=== PATIENT | male | born 1960 | race Caucasian/White ===

== ENCOUNTER 2017-11-08 11:00 | Emergency (ER) | payer MEDICAID ==
[~2017-11-08] VITALS: Ht 170.2 cm; Wt 84.1 kg
[2017-11-08 11:37] LABS: BASOPHILS # (AUTO) 0.02 x10^3/uL (0-0.1); BASOPHILS % (AUTO) 0 % (0-1); EOSINOPHILS # (AUTO) 0.08 x10^3/uL (0-0.4); EOSINOPHILS % (AUTO) 1 % (1-7); LYMPHOCYTES # (AUTO) 1.24 x10^3/uL (1-3.4); LYMPHOCYTES % (AUTO) 18 % (22-44); MD NO; MEAN CORPUSCULAR HEMOGLOBIN 31.6 pg (27.5-34.5); MEAN CORPUSCULAR HGB CONC 33.9 g/dL (33.2-36.2); MEAN CORPUSCULAR VOLUME 93.1 fL (81-97); MEAN PLATELET VOLUME 7.1 fL (7.4-10.4); MONOCYTES # (AUTO) 0.49 x10^3/uL (0.2-0.8); MONOCYTES % (AUTO) 7 % (2-9); NEUTROPHILS # (AUTO) 5.11 x10^3/uL (1.8-6.8); NEUTROPHILS % (AUTO) 74 % (42-75); PLATELET COUNT 225 x10^3/uL (130-400); RED BLOOD COUNT 4.87 x10^6/uL (4.38-5.82); RED CELL DISTRIBUTION WIDTH 13.7 % (9.4-14.8)
[2017-11-08 11:43] LABS: ALANINE AMINOTRANSFERASE 23 U/L (12-78); ALBUMIN 3.8 g/dL (3.4-5.0); ANION GAP 5 mmol/L (5-15); CALCIUM 8.6 mg/dL (8.5-10.1); CHLORIDE 112 mmol/L (98-107); CREATININE 0.84 mg/dL (0.7-1.3)
[2017-11-08 11:48] LABS: ALKALINE PHOSPHATASE 96 U/L (45-117); BILIRUBIN,TOTAL 1.1 mg/dL (0.2-1.0); TOTAL PROTEIN 7.2 g/dL (6.4-8.2); TROPONIN I < 0.015 ng/mL (0.000-0.045)
[2017-11-08] MEDS ORDERED: ONDANSETRON ODT 4 MG ONE (13:20)
[2017-11-08] MEDS ORDERED: MECLIZINE CHEWABLE 25 MG TAB ONE (13:20)
[2017-11-08] MEDS ORDERED: MECLIZINE CHEWABLE 25 MG TAB PO ONE (13:30)
[2017-11-08] MEDS ORDERED: ONDANSETRON ODT 4 MG PO ONE (13:30)
[2017-11-08 14:24] VITALS: BP 136/89
== END 2017-11-08 14:29 | disposition home or self-care (01) ==
LOC: ED 14:05
DX: R42 Dizziness and giddiness (principal); R53.1 Weakness
CPT/HCPCS: 36415; 71045; 80053; 84484; 85025; 93005; 99285; Q0162

== ENCOUNTER 2020-02-09 17:33 | Inpatient (IN) | payer MEDICAID, OTHER ==
[~2020-02-09] VITALS: Ht 170.2 cm; Wt 82.4 kg
--- NOTE | 2020-02-09 17:58 | NUR ---
TASK RN COVERING PRIMARY RN MEALBREAK. ERP IN TO ASSESS PT.
--- NOTE | 2020-02-09 18:04 | NUR ---
PT HAS CO LOW BACK PAIN, DECREASED APPETITE, WEAKNESS, DIARRHEA, AND OCCASIONAL COUGH. DENIES SOB OR CP. PLACED VITAL SIGNS MONITORS. CALL LIGHT WITHIN REACH.
[2020-02-09 18:18] LABS: BASOPHILS # (AUTO) 0.02 x10^3/uL (0-0.1); BASOPHILS % (AUTO) 1 % (0-1); EOSINOPHILS % (AUTO) 0 % (1-7); LYMPHOCYTES # (AUTO) 0.61 x10^3/uL (1-3.4); LYMPHOCYTES % (AUTO) 19 % (22-44); MD NO; MEAN CORPUSCULAR HEMOGLOBIN 31.2 pg (27.5-34.5); MEAN CORPUSCULAR HGB CONC 33.4 g/dL (33.2-36.2); MEAN CORPUSCULAR VOLUME 93.4 fL (81-97); MEAN PLATELET VOLUME 7.8 fL (7.4-10.4); MONOCYTES # (AUTO) 0.37 x10^3/uL (0.2-0.8); MONOCYTES % (AUTO) 12 % (2-9); NEUTROPHILS # (AUTO) 2.26 x10^3/uL (1.8-6.8); NEUTROPHILS % (AUTO) 69 % (42-75); PLATELET COUNT 108 x10^3/uL (130-400); RED CELL DISTRIBUTION WIDTH 14.2 % (9.4-14.8)
[2020-02-09 18:27] LABS: MICROSCOPIC NOT IND
[2020-02-09 18:27] LABS: ALBUMIN 3.3 g/dL (3.4-5.0); ANION GAP 8 mmol/L (5-15); CHLORIDE 105 mmol/L (98-107)
[2020-02-09 18:39] LABS: ALANINE AMINOTRANSFERASE 34 U/L (12-78); ALKALINE PHOSPHATASE 78 U/L (45-117); BILIRUBIN,TOTAL 0.6 mg/dL (0.2-1.0); CREATININE 0.82 mg/dL (0.7-1.3); TOTAL PROTEIN 6.7 g/dL (6.4-8.2)
[2020-02-09] MEDS ORDERED: ACETAMINOPHEN 500 MG TABLET ONE (18:57)
[2020-02-09] MEDS ORDERED: CEFTRIAXONE PMX 1GM/50ML 50 ML IV ONE (19:00)
[2020-02-09] MEDS ORDERED: ACETAMINOPHEN 500 MG TABLET PO ONE (19:00)
[2020-02-09] MEDS ORDERED: AZITHROMYCIN 500 MG in SODIUM CHLORIDE 0.9% 250 ML IV ONE (19:00)
[2020-02-09] MEDS ORDERED: CEFTRIAXONE PMX 1GM/50ML 50 ML ONE (19:03)
--- NOTE | 2020-02-09 20:05 | NUR ---
ABX INFUSING, VSS. AWAITING BED ASSIGNMENT.
--- NOTE | 2020-02-09 20:41 | NUR ---
REPORT GIVEN TO MARCO A MARTINEZ.
[2020-02-09 21:30] VITALS: BP 110/73
[2020-02-09] MEDS ORDERED: ONDANSETRON ODT 4 MG PO PRN (21:30)
[2020-02-09] MEDS ORDERED: HEPARIN 5,000 UNITS/ML, 1ML SQ SCH (21:30)
[2020-02-09] MEDS ORDERED: MELATONIN 5 MG TABLET PO PRN (21:30)
[2020-02-09] MEDS ORDERED: ACETAMINOPHEN 325 MG TABLET PO PRN (21:30)
[2020-02-09] MEDS ORDERED: hydrALAzine 20 MG/ML, 1ML IVPush PRN (21:30)
[2020-02-09] MEDS ORDERED: DOCUSATE 100 MG CAPSULE PO PRN (21:30)
[2020-02-10 00:13] VITALS: BP 124/79
[2020-02-10 05:49] LABS: BASOPHILS # (AUTO) 0.01 x10^3/uL (0-0.1); BASOPHILS % (AUTO) 0 % (0-1); EOSINOPHILS # (AUTO) 0.01 x10^3/uL (0-0.4); EOSINOPHILS % (AUTO) 0 % (1-7); LYMPHOCYTES % (AUTO) 24 % (22-44); MD NO; MEAN CORPUSCULAR HEMOGLOBIN 31.3 pg (27.5-34.5); MEAN CORPUSCULAR HGB CONC 33.3 g/dL (33.2-36.2); MEAN CORPUSCULAR VOLUME 94.1 fL (81-97); MEAN PLATELET VOLUME 7.9 fL (7.4-10.4); MONOCYTES % (AUTO) 15 % (2-9); NEUTROPHILS # (AUTO) 2.07 x10^3/uL (1.8-6.8); NEUTROPHILS % (AUTO) 61 % (42-75); PLATELET COUNT 105 x10^3/uL (130-400); RED CELL DISTRIBUTION WIDTH 14.1 % (9.4-14.8)
[2020-02-10 05:59] LABS: ANION GAP 7 mmol/L (5-15); CALCIUM 8.4 mg/dL (8.5-10.1); CHLORIDE 108 mmol/L (98-107); CREATININE 0.71 mg/dL (0.7-1.3)
[2020-02-10 07:54] LABS: TROPONIN I < 0.015 ng/mL (0.000-0.045)
[2020-02-10 08:00] VITALS: BP 134/83
[2020-02-10] MEDS ORDERED: ASCORBIC ACID 500 MG TABLET PO SCH (08:00)
[2020-02-10] MEDS: DEXAMETHASONE 4 MG/ML, 1ML IVPush SCH ×2 (08:00→20:02)
[2020-02-10] MEDS: ENOXAPARIN 40 MG/0.4 ML SQ SCH (08:02)
[2020-02-10] MEDS: THIAMINE 100MG TABLET PO SCH ×2 (08:02→20:02)
[2020-02-10] MEDS: CHOLECALCIFEROL 5,000u TAB PO SCH (08:02)
[2020-02-10] MEDS: ZINC SULFATE 220 MG CAPSULE PO SCH (08:02)
[2020-02-10] MEDS ORDERED: LOVA20TA2 PO (11:53)
[2020-02-10] MEDS ORDERED: LEVO50TA PO (11:53)
[2020-02-10 12:30] VITALS: BP 118/82
[2020-02-10] MEDS: ASCORBIC ACID 500 MG TABLET PO SCH (16:08)
[2020-02-10 19:22] VITALS: BP 147/89
[2020-02-10] MEDS ORDERED: CEFTRIAXONE PMX 1GM/50ML 50 ML IV SCH (19:30)
[2020-02-10 20:17] LABS: CLOSTRIDIUM DIFFICILE ANTIGEN NEGATIVE; CLOSTRIDIUM DIFFICILE TOXIN NEGATIVE (Negative)
[2020-02-10] MEDS: AZITHROMYCIN 500 MG in SODIUM CHLORIDE 0.9% 250 ML IV SCH (21:22)
[2020-02-11] MEDS ORDERED: OMNIPAQUE 350 MG/ML, 100ML BOTTLE ONE (00:05)
[2020-02-11 00:12] VITALS: BP 116/77
[2020-02-11 05:00] LABS: BASOPHILS # (AUTO) 0.01 x10^3/uL (0-0.1); BASOPHILS % (AUTO) 0 % (0-1); EOSINOPHILS % (AUTO) 0 % (1-7); LYMPHOCYTES # (AUTO) 0.52 x10^3/uL (1-3.4); LYMPHOCYTES % (AUTO) 15 % (22-44); MD NO; MEAN CORPUSCULAR HEMOGLOBIN 31.7 pg (27.5-34.5); MEAN CORPUSCULAR HGB CONC 33.7 g/dL (33.2-36.2); MEAN CORPUSCULAR VOLUME 94.1 fL (81-97); MEAN PLATELET VOLUME 8.3 fL (7.4-10.4); MONOCYTES # (AUTO) 0.37 x10^3/uL (0.2-0.8); MONOCYTES % (AUTO) 11 % (2-9); NEUTROPHILS # (AUTO) 2.49 x10^3/uL (1.8-6.8); NEUTROPHILS % (AUTO) 73 % (42-75); PLATELET COUNT 125 x10^3/uL (130-400); RED BLOOD COUNT 4.76 x10^6/uL (4.38-5.82); RED CELL DISTRIBUTION WIDTH 14.4 % (9.4-14.8)
[2020-02-11 05:12] LABS: ANION GAP 6 mmol/L (5-15); CALCIUM 8.7 mg/dL (8.5-10.1); CHLORIDE 109 mmol/L (98-107)
[2020-02-11 07:49] VITALS: BP 112/68
[2020-02-11] MEDS: DEXAMETHASONE 4 MG/ML, 1ML IVPush SCH ×2 (09:40→21:07)
[2020-02-11] MEDS: ASCORBIC ACID 500 MG TABLET PO SCH ×3 (09:41→17:13)
[2020-02-11] MEDS: ZINC SULFATE 220 MG CAPSULE PO SCH (09:42)
[2020-02-11] MEDS: ENOXAPARIN 40 MG/0.4 ML SQ SCH (09:42)
[2020-02-11] MEDS: CHOLECALCIFEROL 5,000u TAB PO SCH (09:42)
[2020-02-11] MEDS: THIAMINE 100MG TABLET PO SCH ×2 (09:42→21:08)
[2020-02-11] MEDS: PIPERACILLIN/TAZO/PMX 3.375GM 50 ML IV SCH ×3 (09:57→23:10)
[2020-02-11] MEDS ORDERED: ASCORBIC ACID 250 MG TAB ONE (11:32)
[2020-02-11 13:39] VITALS: BP 114/77
[2020-02-11 18:54] VITALS: BP 123/73
[2020-02-11] MEDS ORDERED: LOPERAMIDE 2 MG CAPSULE PO PRN (19:00)
[2020-02-11] MEDS: AZITHROMYCIN 500 MG in SODIUM CHLORIDE 0.9% 250 ML IV SCH (21:08)
[2020-02-11] MEDS: ENOXAPARIN 80 MG/0.8 ML SQ SCH (21:08)
[2020-02-12 01:28] VITALS: BP 116/73
[2020-02-12] MEDS: PIPERACILLIN/TAZO/PMX 3.375GM 50 ML IV SCH ×4 (05:11→22:49)
[2020-02-12 05:19] LABS: BASOPHILS # (AUTO) 0.01 x10^3/uL (0-0.1); BASOPHILS % (AUTO) 0 % (0-1); EOSINOPHILS # (AUTO) 0.01 x10^3/uL (0-0.4); EOSINOPHILS % (AUTO) 0 % (1-7); LYMPHOCYTES # (AUTO) 0.61 x10^3/uL (1-3.4); LYMPHOCYTES % (AUTO) 7 % (22-44); MD NO; MEAN CORPUSCULAR HEMOGLOBIN 31.2 pg (27.5-34.5); MEAN CORPUSCULAR VOLUME 94.4 fL (81-97); MEAN PLATELET VOLUME 8.6 fL (7.4-10.4); MONOCYTES # (AUTO) 0.63 x10^3/uL (0.2-0.8); MONOCYTES % (AUTO) 7 % (2-9); NEUTROPHILS # (AUTO) 7.49 x10^3/uL (1.8-6.8); NEUTROPHILS % (AUTO) 86 % (42-75); PLATELET COUNT 137 x10^3/uL (130-400); RED CELL DISTRIBUTION WIDTH 14.4 % (9.4-14.8)
[2020-02-12 05:26] LABS: ALBUMIN 2.7 g/dL (3.4-5.0); ANION GAP 8 mmol/L (5-15); CHLORIDE 111 mmol/L (98-107)
[2020-02-12 05:33] LABS: ALANINE AMINOTRANSFERASE 33 U/L (12-78); ALKALINE PHOSPHATASE 79 U/L (45-117); BILIRUBIN,TOTAL 0.8 mg/dL (0.2-1.0); CREATININE 0.86 mg/dL (0.7-1.3); TOTAL PROTEIN 6.2 g/dL (6.4-8.2); TROPONIN I < 0.015 ng/mL (0.000-0.045)
[2020-02-12 06:54] VITALS: BP 107/72
[2020-02-12] MEDS: ZINC SULFATE 220 MG CAPSULE PO SCH (08:51)
[2020-02-12] MEDS: DEXAMETHASONE 4 MG/ML, 1ML IVPush SCH (08:51)
[2020-02-12] MEDS: ENOXAPARIN 80 MG/0.8 ML SQ SCH ×2 (08:51→21:29)
[2020-02-12] MEDS: THIAMINE 100MG TABLET PO SCH ×2 (08:52→21:29)
[2020-02-12] MEDS: ASCORBIC ACID 500 MG TABLET PO SCH ×3 (08:52→17:00)
[2020-02-12] MEDS: CHOLECALCIFEROL 5,000u TAB PO SCH (08:52)
[2020-02-12 12:29] VITALS: BP 21/81
[2020-02-12 19:51] VITALS: BP 124/76
[2020-02-12] MEDS: AZITHROMYCIN 500 MG in SODIUM CHLORIDE 0.9% 250 ML IV SCH (21:30)
[2020-02-13 00:34] VITALS: BP 100/64
[2020-02-13] MEDS: PIPERACILLIN/TAZO/PMX 3.375GM 50 ML IV SCH ×3 (05:04→16:31)
[2020-02-13 06:26] LABS: ALBUMIN 2.6 g/dL (3.4-5.0); ANION GAP 8 mmol/L (5-15); CALCIUM 7.9 mg/dL (8.5-10.1); CHLORIDE 112 mmol/L (98-107)
[2020-02-13 06:34] LABS: ALANINE AMINOTRANSFERASE 31 U/L (12-78); ALKALINE PHOSPHATASE 80 U/L (45-117); BILIRUBIN,TOTAL 0.9 mg/dL (0.2-1.0); CREATININE 0.78 mg/dL (0.7-1.3); TOTAL PROTEIN 6.1 g/dL (6.4-8.2)
[2020-02-13 07:05] LABS: BASOPHILS % (AUTO) 0 % (0-1); EOSINOPHILS % (AUTO) 0 % (1-7); LYMPHOCYTES # (AUTO) 0.71 x10^3/uL (1-3.4); LYMPHOCYTES % (AUTO) 7 % (22-44); MD NO; MEAN CORPUSCULAR HEMOGLOBIN 30.9 pg (27.5-34.5); MEAN CORPUSCULAR HGB CONC 32.3 g/dL (33.2-36.2); MEAN CORPUSCULAR VOLUME 95.4 fL (81-97); MEAN PLATELET VOLUME 8.8 fL (7.4-10.4); MONOCYTES # (AUTO) 0.63 x10^3/uL (0.2-0.8); MONOCYTES % (AUTO) 6 % (2-9); NEUTROPHILS # (AUTO) 8.85 x10^3/uL (1.8-6.8); NEUTROPHILS % (AUTO) 87 % (42-75); PLATELET COUNT 139 x10^3/uL (130-400); RED BLOOD COUNT 4.47 x10^6/uL (4.38-5.82); RED CELL DISTRIBUTION WIDTH 14.1 % (9.4-14.8)
[2020-02-13 07:25] VITALS: BP 112/65
[2020-02-13] MEDS ORDERED: DEXAMETHASONE 4 MG TABLET PO SCH (09:00)
[2020-02-13] MEDS: CHOLECALCIFEROL 5,000u TAB PO SCH (09:40)
[2020-02-13] MEDS: THIAMINE 100MG TABLET PO SCH (09:40)
[2020-02-13] MEDS: ZINC SULFATE 220 MG CAPSULE PO SCH (09:40)
[2020-02-13] MEDS: ENOXAPARIN 80 MG/0.8 ML SQ SCH (09:41)
[2020-02-13] MEDS: ASCORBIC ACID 500 MG TABLET PO SCH ×2 (11:24→16:31)
[2020-02-13 12:49] VITALS: BP 116/74
[2020-02-13] MEDS ORDERED: ASCO500T9 PO (17:49)
[2020-02-13] MEDS ORDERED: MELA5TAB14 PO (17:49)
[2020-02-13] MEDS ORDERED: AMOX1TAB12 PO (17:49)
[2020-02-13] MEDS ORDERED: PRED10TA PO (17:49)
[2020-02-13] MEDS ORDERED: DOXY100T PO (17:49)
[2020-02-13] MEDS ORDERED: THIA100T67 PO (17:49)
[2020-02-13] MEDS ORDERED: CHOL500045 PO (17:49)
[2020-02-13] MEDS ORDERED: ZINC220C7 PO (17:49)
[2020-02-13] MEDS ORDERED: APIX5TAB PO (17:49)
[2020-02-13] MEDS ORDERED: APIXABAN 5 MG TABLET PO SCH (21:00)
[2020-02-13] MEDS ORDERED: DOXYCYCLINE 100MG TABLET PO SCH (21:00)
[2020-02-13] MEDS ORDERED: AMOXICILLIN/CLAV 875-125MG TABLET PO SCH (21:00)
== END 2020-02-13 19:35 | disposition home or self-care (01) | DRG 177 ==
LOC: ED 20:34 → 3N 22:32 → UNDODISIN 02-13 18:17
PROVIDERS: ADMIT Family Medicine; ATTEND Internal Medicine
DX: U07.1 COVID-19 (principal); J12.89 Other viral pneumonia; C85.90 Non-Hodgkin lymphoma, unspecified, unspecified site; D69.6 Thrombocytopenia, unspecified; D72.819 Decreased white blood cell count, unspecified; K80.20 Calculus of gallbladder without cholecystitis without obstruction
CPT/HCPCS: 36415; 71045; 71275; 80048; 80053; 81003; 82728; 83605; 83615; 84145; 84443; 84484; 85025; 85379; 86140; 87040; 87324; 87635; 93005; 96365; 96368; 99285; G0378; J0456; J0696; J1100; J1644; J1650; J2543; Q9967; J7050